=== PATIENT | female | born 1955 | race Caucasian/White ===

== ENCOUNTER 2016-09-12 16:50 | Emergency (ER) | payer MEDICAID ==
[~2016-09-12] VITALS: Ht 154.9 cm; Wt 58.0 kg
[~2016-09-12 16:50] MED LIST: ALBU6.7H INH; LEVO500T15 PO; PULM50 HHN
[2016-09-12] MEDS ORDERED: IBUPROFEN 600MG TABLET PO ONE (18:45)
[2016-09-12 18:54] VITALS: BP 138/82
== END 2016-09-12 19:11 | disposition home or self-care (01) ==
LOC: ER 19:01
DX: S39.012A Strain of muscle, fascia and tendon of lower back, initial encounter (principal); I10 Essential (primary) hypertension; V49.50XA Passenger injured in collision with unspecified motor vehicles in traffic accident, initial encounter; Y93.89 Activity, other specified; Y99.8 Other external cause status; Y92.89 Other specified places as the place of occurrence of the external cause
CPT/HCPCS: 99282

== ENCOUNTER 2017-02-02 17:47 | Emergency (ER) | payer MEDICAID ==
[~2017-02-02] VITALS: Ht 152.4 cm; Wt 62.0 kg
[~2017-02-02 17:47] MED LIST changes: -LEVO500T15 PO; +LEVO500T2 PO
[2017-02-02] MEDS ORDERED: BACITRACIN ZINC OINT UDPKT TOP NR (23:15)
[2017-02-02] MEDS ORDERED: TETANUS, DIPHTHERIA, PERTUSSIS VAC/PF 0.5ML (>7YR OLD) IM ONE (23:15)
[2017-02-02] MEDS ORDERED: LIDOCAINE HCL 1% 20ML VIAL (Pyxis) INJ MC NR (23:15)
[2017-02-03] MEDS ORDERED: ONDANSETRON 4MG ODT PO PRN
[2017-02-03] MEDS ORDERED: MORPHINE SULFATE 4 MG/ML CPJ (NOT FOR IM USE) IV ONE
[2017-02-03] MEDS: CEFTRIAXONE SODIUM 1 G/VIAL IM NR ×2 (00:15→01:58)
[2017-02-03 01:08] LABS: CLARITY URINE CLEAR (CLEAR); COLOR URINE YELLOW (YELLOW); GLUCOSE URINE NEGATIVE (NEGATIVE); KETONES URINE NEGATIVE (NEGATIVE); LEUKOCYTE ESTERASE URINE TRACE (NEGATIVE); NITRITE URINE POSITIVE (NEGATIVE); OCCULT BLOOD URINE TRACE (NEGATIVE); PH URINE 6.5 (4.5-8.0); PROTEIN URINE NEGATIVE (NEGATIVE); SPECIFIC GRAVITY URINE 1.024 (1.005-1.030); UROBILINOGEN URINE 0.2 E.U./dL (0.2-1.0)
[2017-02-03 01:41] VITALS: BP 146/65
== END 2017-02-03 05:00 | disposition home or self-care (01) ==
LOC: ER 17:49
DX: L02.211 Cutaneous abscess of abdominal wall (principal)
CPT/HCPCS: 10060; 81001; 90471; 90715; 96372; 96374; 99284; J0696; J2270; J3490; Q0162; Z7610

== ENCOUNTER 2017-05-21 15:27 | Emergency (ER) | payer MEDICAID ==
[~2017-05-21] VITALS: Ht 154.9 cm; Wt 59.0 kg
[2017-05-21] MEDS ORDERED: ALBUTEROL (0.083%) 2.5MG/3ML NEB HHN STA (16:21)
[2017-05-21] MEDS ORDERED: ACETAMINOPHEN 325MG TABLET PO ONE (16:30)
[2017-05-21] MEDS ORDERED: BENZONATATE 100MG CAPSULE PO ONE (16:30)
[2017-05-21 17:36] VITALS: BP 113/59
== END 2017-05-21 17:47 | disposition home or self-care (01) ==
LOC: ER 15:49
DX: J18.9 Pneumonia, unspecified organism (principal)
CPT/HCPCS: 71010; 87804; 94640; 99285; J7611

== ENCOUNTER 2018-08-13 23:06 | Emergency (ER) | payer MEDICAID ==
[~2018-08-13] VITALS: Ht 152.4 cm; Wt 64.9 kg
[2018-08-14] MEDS ORDERED: ONDANSETRON HCL 4MG/2ML INJ IV STA (00:48)
[2018-08-14] MEDS ORDERED: KETOROLAC 30MG/ML VIAL IV STA (00:48)
[2018-08-14] MEDS ORDERED: METHYLPREDNISOLONE SOD SUCC 125 MG/2 ML VIAL IV STA (00:48)
[2018-08-14] MEDS ORDERED: SODIUM CHLORIDE 0.9% 1,000 ML IV ONE (00:48)
[2018-08-14] MEDS ORDERED: IPRATROPIUM/ALBUTEROL 0.5-3(2.5)MG/3ML NEB HHN ONE (01:00)
[2018-08-14] MEDS ORDERED: PIPERACILLIN/TAZ 3.375G PREMIX 50 ML IV ONE (01:00)
[2018-08-14] MEDS ORDERED: VANCOMYCIN 1 G PREMIX 200 ML IV SCH (01:00)
[2018-08-14 01:26] LABS: BASOPHILS % 0.7 % (0.0-2.0); EOSINOPHILS % 9.4 % (0.0-5.0); HEMATOCRIT. 40.4 % (36.0-48.0); HEMOGLOBIN. 13.5 g/dL (12.0-16.0); LYMPHOCYTES % 17.1 % (20.0-50.0); MEAN CORPUSCULAR HEMOGLOBIN 30.4 pg (28.0-32.0); MEAN CORPUSCULAR VOLUME 91.1 fL (81.0-99.0); MEAN PLATELET VOLUME 10.5 fl (7.4-10.4); NEUTROPHILS % 65.8 % (40.0-76.0); PLATELET 176 x1000/uL (130-400); RED BLOOD CELL COUNT 4.43 mill/uL (4.2-5.4); RED CELL DISTRIBUTION WIDTH 13.5 % (11.6-14.6)
[2018-08-14 01:29] LABS: CHLORIDE 106 mEq/L (98-107)
[2018-08-14 01:32] LABS: PARTIAL THROMBOPLASTIN TIME 29.4 sec (23.4-31.0); PROTHROMBIN TIME 10.1 sec (9.1-11.1)
[2018-08-14 03:35] VITALS: BP 144/50
== END 2018-08-14 03:41 | disposition home or self-care (01) ==
LOC: ER 23:06 → CANBEDREQ 08-14 03:55
DX: J02.9 Acute pharyngitis, unspecified (principal); J40 Bronchitis, not specified as acute or chronic; R53.1 Weakness; J45.909 Unspecified asthma, uncomplicated; Z79.899 Other long term (current) drug therapy
CPT/HCPCS: 36415; 71045; 80053; 83690; 83880; 84484; 85025; 85610; 85730; 87040; 87086; 93005; 94640; 96365; 96366; 96367; 96375; 99284; J1885; J2405; J2543; J2930; J3370; J7030; J7620

== ENCOUNTER 2018-08-29 20:23 | Emergency (ER) | payer MEDICAID ==
[~2018-08-29] VITALS: Ht 154.9 cm; Wt 63.0 kg
[2018-08-29 21:43] VITALS: BP 114/72
[2018-08-29] MEDS ORDERED: VISCOUS LIDOCAINE 2% 15 ML UDC PO STA (22:55)
[2018-08-29] MEDS ORDERED: MAGNESIUM/ALUMINUM HYDROXIDE/SIMETHICONE 30ML UDC PO STA (22:55)
[2018-08-29 23:18] LABS: HEMATOCRIT. 38.5 % (36.0-48.0); LYMPHOCYTES % 30.6 % (20.0-50.0); MEAN CORPUSCULAR HEMOGLOBIN 30.7 pg (28.0-32.0); MEAN CORPUSCULAR VOLUME 90.8 fL (81.0-99.0); MEAN PLATELET VOLUME 10.3 fl (7.4-10.4); MONOCYTES % 7.1 % (2.0-8.0); NEUTROPHILS % 47.3 % (40.0-76.0); PLATELET 167 x1000/uL (130-400); RED BLOOD CELL COUNT 4.24 mill/uL (4.2-5.4); RED CELL DISTRIBUTION WIDTH 13.5 % (11.6-14.6)
[2018-08-29 23:22] LABS: CHLORIDE 113 mEq/L (98-107)
[2018-08-29 23:27] LABS: PROTHROMBIN TIME 10.2 sec (9.6-11.0)
[2018-08-29 23:29] LABS: CLARITY URINE CLEAR (CLEAR); COLOR URINE YELLOW (YELLOW); KETONES URINE NEGATIVE (NEGATIVE); LEUKOCYTE ESTERASE URINE 1+ (NEGATIVE); NITRITE URINE NEGATIVE (NEGATIVE); OCCULT BLOOD URINE NEGATIVE (NEGATIVE); PH URINE 6.5 (4.5-8.0); PROTEIN URINE NEGATIVE (NEGATIVE); SPECIFIC GRAVITY URINE 1.025 (1.005-1.030); UROBILINOGEN URINE 0.2 E.U./dL (0.2-1.0)
== END 2018-08-30 00:13 | disposition home or self-care (01) ==
LOC: ER 20:23
DX: N39.0 Urinary tract infection, site not specified (principal); J45.909 Unspecified asthma, uncomplicated; Z79.899 Other long term (current) drug therapy
CPT/HCPCS: 36415; 99283

== ENCOUNTER 2018-11-19 16:27 | Emergency (ER) | payer MEDICAID ==
[~2018-11-19] VITALS: Ht 157.5 cm; Wt 63.0 kg
[2018-11-19] MEDS ORDERED: SODIUM CHLORIDE 0.9% 1,000 ML IV ONE (20:19)
[2018-11-19] MEDS ORDERED: KETOROLAC 30MG/ML VIAL IV STA (20:19)
[2018-11-19] MEDS ORDERED: METOCLOPRAMIDE HCL 10MG/2ML VIAL IV ONE (20:30)
[2018-11-19] MEDS ORDERED: DIPHENHYDRAMINE 50MG/ML VIAL IV ONE (20:30)
[2018-11-19 22:03] VITALS: BP 113/46
== END 2018-11-19 22:07 | disposition home or self-care (01) ==
LOC: ER 18:35
DX: R51 Headache (principal); R21 Rash and other nonspecific skin eruption; F41.9 Anxiety disorder, unspecified
CPT/HCPCS: 96374; 96375; 99283; J1200; J1885; J2765; J7030; Z7610

== ENCOUNTER 2019-01-06 20:46 | Emergency (ER) | payer MEDICAID ==
[~2019-01-06] VITALS: Ht 154.9 cm; Wt 63.4 kg
[2019-01-07] MEDS ORDERED: KETOROLAC 60MG/2ML VIAL IM ONE
[2019-01-07 00:27] VITALS: BP 145/62
== END 2019-01-07 00:29 | disposition home or self-care (01) ==
LOC: ER 20:46
DX: M25.562 Pain in left knee (principal); M25.561 Pain in right knee; L21.0 Seborrhea capitis; M19.90 Unspecified osteoarthritis, unspecified site; F41.9 Anxiety disorder, unspecified
CPT/HCPCS: 96372; 99283; J1885